=== PATIENT | male | born 1990 | race Caucasian/White ===

== ENCOUNTER 2018-11-12 03:20 | Emergency (ER) | payer OTHER ==
[2018-11-12 03:29] VITALS: BP 133/98; PULSE 75; TEMP 98.2; BMI 29.5
[2018-11-12] MEDS ORDERED: SODIUM CHLORIDE 0.9% 500 ML INFUS.BAG IV ONE (03:29)
[2018-11-12] MEDS ORDERED: KETOROLAC TROMETHAMINE 30 MG/1 ML VIAL IVPUSH ONE (03:30)
[2018-11-12] MEDS ORDERED: KETOROLAC TROMETHAMINE 30 MG/1 ML VIAL ONE (03:32)
[2018-11-12] MEDS ORDERED: ONDANSETRON 4 MG/2 ML VIAL IVPUSH ONE (03:32)
--- NOTE | 2018-11-12 03:34 | PDOC ---
Attending Attestation - Resident Resident Name: Jenny Gaspar - ED Attending Attestation I have performed the following: I have examined & evaluated the patient, The case was reviewed & discussed with the resident, I agree w/resident's findings & plan - HPI HPI: 11/12/18 03:56 Pt has RIght sided flank pain. that is worsening and no moving. Pain is at the RLQ, where it's not moving. 11/12/18 04:37 - Physicial Exam PE: 11/12/18 05:11 Agree with resident exam - Medical Decision Making 11/12/18 05:10 Labs are normal; K+ and Mg+ will be repleted. 11/12/18 05:23 Patient Name: HALI STEEL THIS IS A PRELIMINARY REPORT FROM [facility] DATE OF SERVICE: 2018-11-12 03:51:53 IMAGES: [id number] EXAM: CT ABDOMEN WITHOUT CONTRAST AND CT PELVIS WITHOUT CONTRAST HISTORY: 28-Year-Old Male Assess For Right-Sided Nephrolithiasis. COMPARISON: None. FINDINGS: Lung bases are clear. Lack of intravenous contrast limits this exam. Lack of oral contrast limits this exam. Noncontrast evaluation liver, gallbladder pancreas spleen adrenal glands appear unremarkable. Mild left kidney medullary nephrocalcinosis. Moderate right hydronephrosis with a 3 x 3 x 3 mm stone distal right ureter near the right ureterovesicular junction. Noncontrast evaluation stomach small bowel and appendix appear unremarkable. No appendicitis. Moderate amount of gas and stool in the colon. Diverticulosis without diverticulitis. Bladder and prostate appear unremarkable. No free air. No free fluid. No abscess. Bones appear unremarkable. Subcentimeter mesenteric lymph nodes may be due to mesenteric adenitis. Subcentimeter groin lymph nodes noted. IMPRESSION: Moderate right hydronephrosis with a 3 mm distal right ureteral stone
[2018-11-12] MEDS ORDERED: morphine CARPU-JECT 2 MG/1 ML DISP.SYRIN IVPUSH ONE (03:42)
[2018-11-12] MEDS ORDERED: morphine SULFATE 4 MG/ML VIAL ONE (03:42)
[2018-11-12 03:55] LABS: HEMOGLOBIN 14.8 GM/dL (11.7-16.9); RBC 4.87 M/mm3 (4.00-5.60)
[2018-11-12 04:18] LABS: BASO % 0.4 % (0-2.0); EOS % 2.7 % (0-4.5); LYMPH % 59.5 % (8-40); MCH 30.3 pg (25.7-33.7); MCHC 33.6 g/dl (32.0-35.9); MEAN CELL VOLUME 90.2 fl (80-96); MEAN PLT VOLUME 7.5 fl (7.5-11.1); NEUT % 30.4 % (42.8-82.8); PLATELET COUNT 274 K/MM3 (134-434); RDW 13.9 % (11.9-15.9); WHITE BLOOD COUNT 8.6 K/mm3 (4.0-10.0)
[2018-11-12] MEDS ORDERED: ACETAMINOPHEN 1000 MG/100 ML VIAL (NON FORMULARY) IVPB ONE (04:25)
[2018-11-12 04:26] LABS: BILIRUBIN,TOTAL 0.6 mg/dL (0.2-1); BLOOD UREA NITROGEN 17.2 mg/dL (7-18); CALCIUM 8.8 mg/dL (8.5-10.1); CREATININE 1.2 mg/dL (0.55-1.3); POTASSIUM 3.3 mmol/L (3.5-5.1); TOT PROT 7.2 g/dl (6.4-8.2)
[2018-11-12] MEDS ORDERED: ACETAMINOPHEN INJECTION 100 ML IVPB ONE (04:29)
[2018-11-12] MEDS ORDERED: POTASSIUM CHLORIDE TABS 20 MEQ TABLET.ER (FP) PO ONE ×2 (04:33→04:43)
[2018-11-12] MEDS ORDERED: MAGNESIUM SULF 50% (8.12 MEQ/2 ML-1 GM VIAL) IVPB ONE (04:33)
--- NOTE | 2018-11-12 04:33 | PDOC ---
History of Present Illness - General Chief Complaint: Pain, Acute Stated Complaint: PAIN Time Seen by Provider: 11/12/18 03:28 Past History - Past Medical History Allergies/Adverse Reactions: Allergies Allergy/AdvReac Type Severity Reaction Status Date / Time No Known Allergies Allergy Verified 11/12/18 03:26 Home Medications: Ambulatory Orders Ibuprofen [Motrin -] 600 mg PO TID #30 tablet 11/12/18 Tamsulosin HCl [Flomax] 0.4 mg PO DAILY #10 cap.er.24h 11/12/18 - Psycho Social/Smoking Cessation Hx Smoking History: Never smoked Have you smoked in the past 12 months: No Information on smoking cessation initiated: No Hx Alcohol Use: No Drug/Substance Use Hx: No *Physical Exam - Vital Signs Last Vital Signs Temp Pulse Resp BP Pulse Ox 98.2 F 75 20 133/98 99 11/12/18 03:27 11/12/18 03:27 11/12/18 03:27 11/12/18 03:27 11/12/18 03:27 ED Treatment Course - LABORATORY CBC & Chemistry Diagram: 11/12/18 03:37 11/12/18 03:37 - ADDITIONAL ORDERS Additional order review: Laboratory Results 11/12/18 03:37 Sodium 140 Potassium 3.3 L Chloride 107 Carbon Dioxide 23 Anion Gap 10 BUN 17.2 Creatinine 1.2 Est GFR (CKD-EPI)AfAm 95.47 Est GFR (CKD-EPI)NonAf 82.38 Random Glucose 116 H Calcium 8.8 Total Bilirubin 0.6 AST 17 ALT 25 Alkaline Phosphatase 84 Total Protein 7.2 Albumin 4.0 11/12/18 03:37 RBC 4.87 MCV 90.2 MCHC 33.6 RDW 13.9 MPV 7.5 Neutrophils % 30.4 L Lymphocytes % 59.5 H Monocytes % 7.0 Eosinophils % 2.7 Basophils % 0.4 - Medications Given in the ED: ED Medications Discontinued Medications Generic Name Dose Route Start Last Admin Trade Name Freq PRN Reason Stop Dose Admin Acetaminophen 1,000 mg 11/12/18 04:25 11/12/18 04:33 Ofirmev Injection - IVPB 11/12/18 04:26 1,000 mg ONCE ONE Administration Ketorolac Tromethamine 30 mg 11/12/18 03:30 11/12/18 03:36 Toradol Injection - IVPUSH 11/12/18 03:31 30 mg ONCE ONE Administration Morphine Sulfate 2 mg 11/12/18 03:42 11/12/18 03:45 Morphine Injection - IVPUSH 11/12/18 03:43 2 mg ONCE ONE Administration Ondansetron HCl 4 mg 11/12/18 03:32 11/12/18 03:36 Zofran Injection IVPUSH 11/12/18 03:33 4 mg ONCE ONE Administration Sodium Chloride 1,000 ml 11/12/18 03:29 11/12/18 03:36 Normal Saline - IV 11/12/18 03:30 1,000 ml ONCE ONE Administration Medical Decision Making - Medical Decision Making 11/12/18 04:35 HPI: 28yo M no PMH presents from home c/o R flank pain since 229 today, rapid onset , woke from sleep, began as small soreness and has progressed to severe pain, nonradiating, nonmoving, throbbing, sharp, constant, associated with nausea, no hx of similar sx. Of note, 2 days of rhinorrhea and sore throat resolved yesterday with cough medication, denies any sx of cold or flu now. Denies trauma , heavy lifting, hx UTIs, hx kidney stones, hx kidney problems, fever, chills, fatigue, headache, dizziness, numbness/tingling, weakness, vision changes, shortness of breath, cough, chest pain, palpitations, leg swelling, abdominal pain, blood in stool, diarrhea, constipation, nausea, vomiting, dysuria, hematuria, penile discharge, testicular pain, testicular swelling, confusion, alcohol use, drug use, sick contacts, recent travel. ROS: Constitutional: Negative for chills, fever, fatigue, diaphoresis. HENT: Negative for sore throat, rhinorrhea, congestion. Eyes: Negative for visual disturbance. Respiratory: Negative for shortness of breath, cough, and wheezing. Cardiovascular: Negative for chest pain, palpitations, and leg swelling. Gastrointestinal: Positive for nausea. Negative for abdominal pain, blood in stool, constipation, diarrhea, and vomiting. Genitourinary: Positive for R flank pain. Negative for dysuria and hematuria. Musculoskeletal: Negative for myalgias, back pain, and neck pain. Skin: Negative for rash. Neurological: Negative for light-headedness, dizziness, vertigo, syncope, weakness, numbness and headaches. Psychiatric/Behavioral: Negative for behavioral problems and confusion. PE: Gen: Alert, NAD, uncomfortable-appearing trembling HEENT: PERRL, EOMI, MMM, NCAT. No conjunctival pallor. Sclera are non-icteric. CV: Regular rate and rhythm. No murmurs, rubs, or gallops. PULM: No resp distress. CTAB, no wheezes, rales, or rhonchi. ABD: soft, NT/ND, no rebound tenderness or guarding, no CVA tenderness. BACK: No TTP of c/t/l-spine. No step-offs or deformities. MSK: No bony deformities. 2+ pulses in all extremities. NEURO: AAOx3. PERRL. No gross CN deficits. Strength and sensation grossly intact throughout. EXTREMITIES: No cyanosis. No clubbing. No edema. No calf tenderness. PSYCH: Normal mood and thought pattern. SKIN: Warm and dry. Normal capillary refill. No rashes. No jaundice. MDM: 28yo M no PMH presents from home c/o R flank pain since 0230 today, rapid onset , woke from sleep, began as small soreness and has progressed to severe pain, nonradiating, nonmoving, throbbing, sharp, constant, associated with nausea, no hx of similar sx. Hemodynamically stable, afebrile, trembling and uncomfortable 2/2 pain. Presentation most consistent with renal stone - labs and CT spiral. Consider other renal pathology such as UTI/pyelo or cyst. Low concern for GI pathology due to lack of abdominal pain, vomiting, diarrhea, constipation, fever - if spiral CT and labs nondiagnostic, reconsider. No trauma, heavy lifting, or back TTP concerning for musculoskeletal pathology. Also consider metabolic derangement. -CBC, CMP, UA/UC -Spiral CT -For pain, Tylenol, Toradol, Lidocaine patch, Morphine -For nausea, Zofran 11/12/18 05:31 Labs reviewed. Of note, K 3.3 - replete K and Mg. UA 3+ blood, negative for infection. CT read: Moderate right hydronephrosis with a 3 mm distal right ureteral stone Pt appears much better - no longer trembling. Will dc home with PCP f/u. Return precautions given. Pt understands all dc instructions and all questions were answered. Discharge - Discharge Information Problems reviewed: Yes Clinical Impression/Diagnosis: Kidney stone on right side Condition: Improved Disposition: HOME - Admission No - Additional Discharge Information Prescriptions: Ibuprofen [Motrin -] 600 mg PO TID #30 tablet Tamsulosin HCl [Flomax] 0.4 mg PO DAILY #10 cap.er.24h - Follow up/Referral - Patient Discharge Instructions Patient Printed Discharge Instructions: DI for Kidney Stones Additional Instructions: You have been seen in the Emergency Department for abdominal pain. Your CT scan shows that you have a 3mm kidney stone in your ureter. Due to its size and location, this stone should pass on its own. At this time, it's most important to stay hydrated. If you experience pain, you can take Tylenol or Ibuprofen as directed on the medication bottle, but do not exceed 3g of Ibuprofen or 4g of Tylenol a day. We have sent a prescription for Motrin to your pharmacy. We have also prescribed you Flomax to help with the urine flow - take once daily as needed. Follow-up with your primary care doctor within 1 week. Return to the ED immediately if you experience pain not controlled by over the counter medications, vomiting, fever, dizziness, or any other new or worsening symptom. - Post Discharge Activity Work/Back to School Note: Back to Work
[2018-11-12] MEDS ORDERED: TAMSULOSIN HCL 0.4 MG CAP PO ONE (04:38)
[2018-11-12] MEDS ORDERED: MAGNESIUM SULF 50% (8.12 MEQ/2 ML-1 GM VIAL) ONE (04:43)
[2018-11-12] MEDS ORDERED: TAMSULOSIN HCL 0.4 MG CAP ONE (04:43)
[2018-11-12] MEDS ORDERED: ONDANSETRON 4 MG TABLET PO ONE (05:31)
[2018-11-12 05:33] LABS: PH,URINE 5.5 (5.0-8.0); URINE APPEARANCE Clear; URINE BILIRUBIN Negative (NEGATIVE); URINE COLOR Yellow; URINE GLUCOSE (UA) Negative (NEGATIVE); URINE KETONE Negative (NEGATIVE); URINE LEUK ESTERASE Negative (NEGATIVE); URINE NITRITE Negative (NEGATIVE); URINE PROTEIN 1+ (NEGATIVE); URINE UROBILINOGEN 0.2 mg/dL (0.2-1.0)
[2018-11-12] MEDS ORDERED: ONDANSETRON *ODT* 4 MG TABLET ONE (05:36)
[2018-11-12] MEDS ORDERED: ONDANSETRON *ODT* 4 MG TABLET SL ONE (05:40)
[2018-11-12] MEDS ORDERED: LIDOCAINE 5% TOPICAL PATCH TP ONE (05:57)
[2018-11-12] MEDS ORDERED: LIDOCAINE 5% TOPICAL PATCH ONE (05:58)
[2018-11-12] MEDS ORDERED: LIDOCAINE PATCH REMOVAL MC SCH (22:00)
== END 2018-11-12 06:08 | disposition home or self-care (01) ==
LOC: JER 03:20
PROC: 3E033NZ Introduction of Analgesics, Hypnotics, Sedatives into Peripheral Vein, Percutaneous Approach (ICD-10-PCS; principal; 2018-11-12)
PROC: 3E0333Z Introduction of Anti-inflammatory into Peripheral Vein, Percutaneous Approach (ICD-10-PCS; 2018-11-12)
PROC: 3E033GC Introduction of Other Therapeutic Substance into Peripheral Vein, Percutaneous Approach (ICD-10-PCS; 2018-11-12)
PROC: 3E033NZ Introduction of Analgesics, Hypnotics, Sedatives into Peripheral Vein, Percutaneous Approach (ICD-10-PCS; 2018-11-12)
DX: N13.2 Hydronephrosis with renal and ureteral calculous obstruction (principal); E87.6 Hypokalemia
CPT/HCPCS: 36415; 74176-TC; 80053; 81003; 85025; 87086; 96374; 96375; 99283-25; J0131; Q0162